=== PATIENT | male | born 1965 | race Caucasian/White ===

== ENCOUNTER 2016-06-19 14:03 | Inpatient (IN) | payer OTHER ==
[2016-06-19 14:45] LABS: Mean Cell Volume 100.6 fl (78-100); Mean Corpuscular Hemoglobin 33.8 pg (26-32); Mean Platelet Volume 9.6 fl (6-9.5); Platelet Count 134 K/mm3 (150-450); Red Blood Count 3.49 M/mm3 (4.1-5.6); Red Cell Distribution Width 14.3 % (11.5-14.0); White Blood Count 9.8 K/mm3 (4.0-10.5)
--- NOTE | 2016-06-19 14:45 | ERPHSYRPT ---
- History of Present Illness Time Seen by Provider: 06/19/16 14:24 Source: patient, family () Physician History: CC: leg swelling Hx: 51 y/o male patient almost 2 weeks s/p craniotomy for brain tumor resection. He had hyponatremia while in the hospital and went home on sodium tablets. He now has swelling of both legs. Called the doctor worried about blood clots in legs so was told to come to ER for check. No chest pain or dyspnea. Doing well post op. Not short of breath. Timing/Duration: today Allergies/Adverse Reactions: dermabond Allergy (Uncoded 06/19/16 14:39) Rash Home Medications: Aspirin 81 gm Chew [Baby Aspirin 81 mg Chew] 81 mg PO DAILY 05/18/14 [ History] Fentanyl 75Mcg Patch [Duragesic 75 MCG Patch] 75 mcg TOP UD 05/18/14 [ History] Multivitamin [Multi Vitamin Daily] 1 ea PO DAILY 05/18/14 [History] Pregabalin [Lyrica] 200 mg PO BID 05/18/14 [History] Ibuprofen 200 mg [Motrin 200 mg] 600 mg PO TID 08/16/14 [History] Carisoprodol 350 mg [Soma 350 mg] 350 mg PO DAILY 03/08/16 [History] Ergocalciferol (Vitamin D2) [Vitamin D2] 50,000 unit PO Q7D 03/08/16 [History] Ibandronate Sodium [Boniva] 150 mg PO UD 03/08/16 [History] Omeprazole [Prilosec] 40 mg PO BID 03/08/16 [History] Oxycodone HCl 10 mg PO BID 03/08/16 [History] Oxycodone HCl 15 mg PO BID 03/08/16 [History] Tadalafil [Cialis] 5 mg PO DAILY PRN PRN 03/08/16 [History] Calcium Carbonate/Vitamin D3 [Calcium 1,000 + D3 Caplet] 1 tab PO DAILY [History] Ipratropium/Albuterol Sulfate [Iprat-Albut 0.5-3(2.5) mg/3 ml] 2 puff IH QID [History] Umeclidinium Brm/Vilanterol Tr [Anoro Ellipta 62.5-25 Mcg INH] 1 puff IH DAILY 04/18/16 [History] Hx Tetanus, Diphtheria Vaccination/Date Given: Yes Hx Influenza Vaccination/Date Given: No Hx Pneumococcal Vaccination/Date Given: No - Review of Systems Constitutional: Malaise, No Fever, No Chills Eyes: No Symptoms Respiratory: No Dyspnea Cardiac: Edema (legs), No Chest Pain Abdominal/Gastrointestinal: No Nausea, No Vomiting Skin: No Rash Neurological: Parasthesia (preop), No Dizziness All Other Systems: Reviewed and Negative - Past Medical History Pertinent Past Medical History: Yes Neurological History: Peripheral Neuropathy ENT History: No Pertinent History Cardiac History: Other Respiratory History: COPD, Lung Cancer Endocrine Medical History: No Pertinent History Musculoskeletal History: Osteoporosis GI Medical History: No Pertinent History History: No Pertinent History Psycho-Social History: No Pertinent History Male Reproductive Disorders: No Pertinent History Other Medical History: Hx lung CA - Past Surgical History Past Surgical History: Yes Neuro Surgical History: Neurological Surgery Cardiac: No Pertinent History Respiratory: No Pertinent History, Other Gastrointestinal: No Pertinent History Genitourinary: No Pertinent History Musculoskeletal: Orthopedic Surgery Male Surgical History: Vasectomy Other Surgical History: R HIP X5 BILAT KNEE, TOE SURG, SINUS SURG, 7 BACK SURG, bronchoscopy. Craniotomy for brain tumor resection - Social History Smoking Status: Current every day smoker How long have you smoked: 35 yrs Exposure to second hand smoke: Yes Drug Use: none Patient Lives Alone: No - Nursing Vital Signs Nursing Vital Signs: Initial Vital Signs Temperature 98.4 F Temperature Source Oral Pulse Rate 113 Respiratory Rate 18 Blood Pressure [Right Arm] 138/81 Pain Intensity 2 - Physical Exam General Appearance: alert, other (pleasant gentleman) Eye Exam: PERRL/EOMI Ears, Nose, Throat Exam: moist mucous membranes Neck Exam: normal inspection, supple Respiratory Exam: normal breath sounds Cardiovascular Exam: regular rate/rhythm Gastrointestinal/Abdomen Exam: soft, No tenderness, No distention Extremity Exam: other (edema both legs, symmetrical, no calf tenderness. Some lacy red reticulated rash on feet. Pulses intact.) Neurologic Exam: alert, oriented x 3, cooperative Skin Exam: warm, dry - Course Nursing assessment & vital signs reviewed: Yes - Radiology Exams cxr X-ray Interpretation: Discussed w/ radiologist (new bilateral upper lobe infiltrates) - Radiology Ultrasound Exam leg dopplers Ultrasound: discussed w/radiologist, negative Ordered Tests: Active Orders 24 hr Category Date Time Status Clean Catch Urine Specimen STAT Care 06/19/16 14:28 Active EKG-ER Only STAT Care 06/19/16 16:24 Active IV Insertion STAT Care 06/19/16 14:28 Active CHEST 1 VIEW (PORTABLE) Stat Exams 06/19/16 16:24 Completed VENOUS BILATERAL EXTREMITY [US] Stat Exams 06/19/16 14:28 Completed BLOOD CULTURE Stat Lab 06/19/16 14:30 Received CBC W DIFF Stat Lab 06/19/16 14:30 Completed CMP Stat Lab 06/19/16 14:30 Completed Lactic Acid Urgent Lab 06/19/16 16:55 Received Manual Differential NC Stat Lab 06/19/16 14:30 Completed NT PRO BNP Stat Lab 06/19/16 16:55 Received UA Stat Lab 06/19/16 16:00 Completed Respiratory Nebulizer STAT RT 06/19/16 15:45 Completed Medication Summary Generic Name Dose Route Start Last Admin Trade Name Freq PRN Reason Stop Dose Admin Azithromycin 250 mls @ 125 mls/hr 06/19/16 16:59 Zithromax 500 Mg/ 250 Ml Nacl Premix IV 06/19/16 18:58 STAT ONE Piperacillin Sod/Tazobactam Sod 100 mls @ 100 mls/hr 06/19/16 16:59 Zosyn 3.375gm/100 Ml D5w IV 06/19/16 17:58 STAT ONE Sodium Chloride 500 mls @ 999 mls/hr 06/19/16 17:00 Sodium Chloride 0.9% 1000 Ml IV 06/19/16 17:30 .Q31M STA Discontinued Medications Generic Name Dose Route Start Last Admin Trade Name Freq PRN Reason Stop Dose Admin Albuterol Sulfate 2.5 mg 06/19/16 15:45 06/19/16 16:00 Proventil 2.5 Mg/3 Ml Neb IH 06/19/16 15:46 2.5 mg STAT ONE Administration Albuterol Sulfate Confirm 06/19/16 15:47 Proventil 2.5 Mg/3 Ml Neb Administered 06/19/16 15:48 Dose 2.5 mg IH .STK-MED ONE Lorazepam 0.5 mg 06/19/16 15:46 06/19/16 16:02 Ativan 2 Mg/1 Ml Vial IV 06/19/16 15:47 0.5 mg STAT ONE Administration Lorazepam Confirm 06/19/16 15:49 Ativan 2 Mg/1 Ml Vial Administered 06/19/16 15:50 Dose 2 mg .ROUTE .STK-MED ONE Oxycodone/Acetaminophen 1 tab 06/19/16 15:29 06/19/16 15:52 Oxycodone-Acetaminophen 10-325 PO 06/19/16 15:30 1 tab STAT STA Administration Oxycodone/Acetaminophen Confirm 06/19/16 15:50 Oxycodone-Acetaminophen 10-325 Administered 06/19/16 15:51 Dose 1 tab .ROUTE .STK-MED ONE Lab/Rad Data: Laboratory Result Diagrams 06/19/16 14:30 06/19/16 14:30 Laboratory Results 06/19/16 06/19/16 06/19/16 Range/Units 16:00 14:30 14:30 WBC 9.8 (4.0-10.5) K/mm3 RBC 3.49 L (4.1-5.6) M/mm3 Hgb 11.8 L (12.5-18.0) gm/dl Hct 35.1 L (42-50) % MCV 100.6 H (78-100) fl MCH 33.8 H (26-32) pg MCHC 33.6 (32-36) g/dl RDW 14.3 H (11.5-14.0) % Plt Count 134 L (150-450) K/mm3 MPV 9.6 H (6-9.5) fl Segmented Neutrophils 92 H (36.-66.) % Band Neutrophils 6 H (0.0-2.0) % Lymphocytes (Manual) 2 L (24-44) % Differential Comment ABNORMAL Platelet Estimate DECREASED (NORMAL) Polychromasia RARE Basophilic Stippling RARE Anisocytosis 1+ Macrocytosis 1+ Sodium 137 (136-145) mEq/L Potassium 3.6 (3.5-5.1) mEq/L Chloride 102 (98-107) mEq/L Carbon Dioxide 29.0 (21-32) mEq/L Anion Gap 9.7 (5-15) MEQ/L BUN 23 H (9-20) mg/dL Creatinine 0.87 (0.55-1.30) mg/dl Estimated GFR > 60 ML/MIN Glucose 137 H (70-110) MG/DL Calcium 8.6 (8.5-10.1) mg/dL Total Bilirubin 0.3 (0.2-1.0) mg/dL AST 30 (15-37) U/L ALT 65 (12-78) U/L Alkaline Phosphatase 86 (46-116) U/L Serum Total Protein 6.0 L (6.4-8.2) gm/dL Albumin 2.3 L (3.4-5.0) g/dL Ur Collection Type VOID Urine Color YELLOW (YELLOW) Urine Appearance CLEAR (CLEAR) Urine pH 7.5 (5-6) Ur Specific [place] 1.020 (1.005-1.025) Urine Protein NEGATIVE (Negative) Urine Glucose (UA) NEGATIVE (NEGATIVE) mg/dL Urine Ketones NEGATIVE (NEGATIVE) Urine Nitrite NEGATIVE (NEGATIVE) Urine Bilirubin NEGATIVE (NEGATIVE) Urine Urobilinogen 1 (0-1) mg/dL Urine WBC (Auto) NEGATIVE (NEGATIVE) Urine RBC (Auto) NEGATIVE (0-5) Angel/ul Specimen Received 06/19/16 1600 - Progress Progress Note: 06/19/16 14:45 Will check labs including Na. Will get doppler to rule out DVT in legs. 06/19/16 15:48 Dopplers negative. Labs ok. UA pending. He is very anxious. Will give neb, ativan, and his percocet. 06/19/16 17:03 Due to persistent and worsened tachycardia cxr and EKG done. He has apparent pneumonia on cxr. Cultures sent. They prefer admission here. He is on some oxygen. Called Dr Scott for Abdulkadir and will admit to ICU. Will cover with zosyn and zithromax to cover for possible healthcare associated pneumonia as recent surgery. Discussed with : Sonia Will see patient in: hospital (full admit) Counseled pt/family regarding: lab results, diagnosis, need for follow-up, rad results - Departure Time of Disposition: 17:05 Departure Disposition: In-patient Admission Clinical Impression: Bilateral leg edema, post op brain tumor resection, Healthcare-associated pneumonia Condition: Fair Critical Care Time: Yes Critical Care Time(excluding separately billable procedures): 30-74 minutes
[2016-06-19 15:22] LABS: ALBUMIN 2.3 g/dL (3.4-5.0); ALKALINE PHOSPHATASE 86 U/L (46-116); ANION GAP 9.7 MEQ/L (5-15); BILIRUBIN,TOTAL 0.3 mg/dL (0.2-1.0); BLOOD UREA NITROGEN 23 mg/dL (9-20); CHLORIDE 102 mEq/L (98-107); Glucose 137 MG/DL (70-110); Potassium 3.6 mEq/L (3.5-5.1); SGOT/AST 30 U/L (15-37); SGPT/ALT 65 U/L (12-78); SODIUM 137 mEq/L (136-145)
[2016-06-19] MEDS ORDERED: OXYCODONE-ACETAMINOPHEN 10-325 PO STA (15:29)
--- NOTE | 2016-06-19 15:33 | XRAY ---
Indication: Bilateral leg edema. Two-dimensional sonogram and color Doppler imaging of the major venous vessels of the left and right leg was performed. Comparison: None No thrombus seen in the examined deep venous vessels of the left or right leg including greater saphenous veins. Veins demonstrate normal compressibility. Venous waveforms are normal with and without augmentation. Impression: Left and right legs negative for DVT.
[2016-06-19 15:44] LABS: BAND 6 % (0.0-2.0); Total Cells Counted 100
[2016-06-19] MEDS ORDERED: PROVENTIL 2.5 MG/3 ML NEB IH ONE ×2 (15:45→15:47)
[2016-06-19] MEDS ORDERED: Ativan 2 MG/1 ML VIAL IV ONE (15:46)
[2016-06-19 15:47] LABS: ANISOCYTOSIS 1+; Basophilic Stippling RARE; Polychromasia RARE
[2016-06-19 15:48] LABS: Macrocytosis 1+; Platelet Estimate DECREASED (NORMAL)
[2016-06-19] MEDS ORDERED: Ativan 2 MG/1 ML VIAL ONE (15:49)
[2016-06-19] MEDS ORDERED: OXYCODONE-ACETAMINOPHEN 10-325 ONE (15:50)
[2016-06-19 16:06] LABS: COMPLETE URINE MICROSCOPIC? NO; Collection Type VOID
[2016-06-19 16:07] LABS: Ph 7.5 (5-6)
--- NOTE | 2016-06-19 16:56 | XRAY ---
Indication: Chest tightness and short breath. Panic attack. Comparison: March 26, 2016 Portable chest demonstrates new right upper and left upper lobe infiltrates versus atelectasis. No consolidation or large effusion. Heart is not enlarged. Stable right Port-A-Cath. Bony thorax intact again with previous T5/T6 kyphoplasty. Impression: New bilateral upper lobe infiltrates/atelectasis. Correlate clinically.
[2016-06-19] MEDS ORDERED: Zosyn 3.375GM/100 Ml D5W 100 ML IV ONE ×2 (16:59→17:29)
[2016-06-19] MEDS ORDERED: Zithromax 500 MG/ 250 ML NaCl Premix 250 ML IV ONE ×2 (16:59→17:29)
[2016-06-19] MEDS ORDERED: Sodium Chloride 0.9% 1000 ML 1,000 ML ONE (17:09)
[2016-06-19] MEDS: Zosyn 3.375GM/100 Ml D5W 100 ML IV SCH (18:30)
[2016-06-19] MEDS ORDERED: DUONEB 0.5-3 MG/3 ml Neb IH ONE (18:39)
[2016-06-19] MEDS: DUONEB 0.5-3 MG/3 ml Neb IH SCH ×2 (18:41→23:47)
--- NOTE | 2016-06-19 19:14 | PCM.HP ---
History of Present Illness - Chief Complaint Chief Complaint: Shortness of Breath History of Present Illness: is a 51 year old male pt of Dr. Panchal (and Dr. Brennan) who had a craniotomy 11 d ago and lung cancer a year ago. He had LE edema bilat starting last night and was told by his surgeon to go to the ER at [facility]. He then had a fever to 101 and CXR revealed bilateral upper lobe infiltrates. Influenza positive. C/o cough for the past 10d. - Review of Systems Constitutional: Fever, Fatigue Ears, Nose, & Throat: Other (incision s/p craniotomy) Respiratory: Cough, Short Of Breath (since arriving at [facility]) Genitourinary Symptoms: Hesitancy (chronic) Musculoskeletal: Arthralgias (knees bilat; chronic) Skin: Rash (LE blanching erythmatous rash from distal 1/3 of lower legs to dorsum of feet bilat) Psychological: Anxiety All Other Systems: Reviewed and Negative Medications & Allergies Home Medications: Home Medication List Fentanyl 75Mcg Patch [Duragesic 75 MCG Patch] 75 mcg TOP UD 05/18/14 [ History Confirmed 06/19/16] Multivitamin [Multi Vitamin Daily] 1 ea PO DAILY 05/18/14 [History Confirmed ] Pregabalin [Lyrica] 200 mg PO BID 05/18/14 [History Confirmed 06/19/16] Carisoprodol 350 mg [Soma 350 mg] 350 mg PO DAILY 03/08/16 [History Confirmed 06/19/16] Ergocalciferol (Vitamin D2) [Vitamin D2] 50,000 unit PO Q7D 03/08/16 [History Confirmed 06/19/16] Ibandronate Sodium [Boniva] 150 mg PO UD 03/08/16 [History Confirmed 06/19/16] Omeprazole [Prilosec] 40 mg PO BID 03/08/16 [History Confirmed 06/19/16] Oxycodone HCl 10 mg PO BID 03/08/16 [History Confirmed 06/19/16] Oxycodone HCl 15 mg PO BID 03/08/16 [History Confirmed 06/19/16] Tadalafil [Cialis] 5 mg PO DAILY PRN PRN 03/08/16 [History Confirmed 06/19/16] Calcium Carbonate/Vitamin D3 [Calcium 1,000 + D3 Caplet] 1 tab PO DAILY [History Confirmed 06/19/16] Ipratropium/Albuterol Sulfate [Iprat-Albut 0.5-3(2.5) mg/3 ml] 2 puff IH QID [History Confirmed 06/19/16] Umeclidinium Brm/Vilanterol Tr [Anoro Ellipta 62.5-25 Mcg INH] 1 puff IH DAILY 04/18/16 [History Confirmed 06/19/16] Allergies/Adverse Reactions: Allergies Allergy/AdvReac Type Severity Reaction Status Date / Time dermabond Allergy Rash Uncoded 06/19/16 14:39 - Past Medical History Past Medical History: Yes Neurological History: Peripheral Neuropathy ENT History: No Pertinent History Cardiac History: Other Respiratory History: COPD, Lung Cancer Endocrine Medical History: No Pertinent History Musculoskelatal History: Osteoporosis GI Medical History: No Pertinent History History: No Pertinent History Pyscho-Social History: No Pertinent History Male Reproductive Disorders: No Pertinent History Comment: Hx lung CA - Past Surgical History Past Surgical History: Yes Neuro Surgical History: Neurological Surgery Cardiac History: No Pertinent History Respiratory Surgery: No Pertinent History, Other GI Surgical History: No Pertinent History Genitourinary Surgical Hx: No Pertinent History Musculskeletal Surgical Hx: Orthopedic Surgery Male Surgical History: Vasectomy Other Surgical History: R HIP X5 BILAT KNEE, TOE SURG, SINUS SURG, 7 BACK SURG, bronchoscopy. Craniotomy for brain tumor resection - Social History Smoking Status: Former smoker How long have you smoked: 2 wks ago Exposure to second hand smoke: No Alcohol: None Drug Use: none - Physical Exam Vital Signs: Vital Signs - 24 hr Temp Pulse Resp BP Pulse Ox 06/19/16 17:56 99.0 F 106 H 18 117/77 95 06/19/16 17:51 105 H 16 94 L 06/19/16 17:19 100.9 F 116 H 16 157/129 91 L 06/19/16 16:22 113 H 18 138/81 90 L 06/19/16 16:07 100 H 20 197/113 92 L 06/19/16 16:00 128 H 32 H 90 L 06/19/16 14:21 98.4 F 94 H 20 137/89 93 L Oxygen-Last 24 hours O2 Percentage 2 Liters = 28% General Appearance: no apparent distress Neurologic Exam: alert, oriented x 3, cooperative Eye Exam: eyes nml inspection Neck Exam: normal inspection Respiratory Exam: diminished breath sounds, wheezing (SOMMER), other (port present R upper chest) Cardiovascular Exam: regular rate/rhythm, normal heart sounds, No murmur Gastrointestinal/Abdomen Exam: soft, normal bowel sounds, No tenderness, No guarding, No rebound Back Exam: normal inspection Extremity Exam: other (lower 1/3 of anterior lower legs and dorsum of feet with macular blanching erythema) Skin Exam: warm, dry Results - Other Procedures and Tests Respiratory Therapy 06/19/16 19:00 Respiratory Nebulizer Q4H Assessment/Plan (1) Influenza Current Visit: Yes Status: Acute Assessment & Plan: Influenza A +. started tamiflu. Concern in this pt with influenza and PNA - I spoke with DR. Carrillo, thank you, and he agrees with the plan of care. He will see the patient in the morning. Code(s): J11.1 - FLU DUE TO UNIDENTIFIED INFLUENZA VIRUS W OTH RESP MANIFEST (2) Healthcare-associated pneumonia Current Visit: Yes Status: Acute Assessment & Plan: Pt put on zosyn and zithromax initially, and vancomycin added due to concern for MRSA PNA in patients with influenza. Code(s): J18.9 - PNEUMONIA, UNSPECIFIED ORGANISM (3) H/O craniotomy Current Visit: Yes Status: Acute Assessment & Plan: 11d post- op. To get marck removed tomorrow. Code(s): Z98.890 - OTHER SPECIFIED POSTPROCEDURAL STATES (4) H/O: lung cancer Current Visit: Yes Status: Acute Assessment & Plan: SOMMER, treated with radiation and chemotherapy, Apr 2015. Code(s): Z85.118 - PERSONAL HISTORY OF MALIGNANT NEOPLASM OF BRONCHUS AND LUNG
[2016-06-19] MEDS ORDERED: Oxy-IR 5 MG PO PRN (20:00)
[2016-06-19] MEDS ORDERED: VANCOCIN 1 GM VIAL*** 1 GM in Sodium Chloride 0.9% 250 ML 250 ML IV SCH ×2 (20:00→22:00)
[2016-06-19] MEDS ORDERED: Vancomycin 1GM/ Ns 250ML*** 250 ML IV ONE (20:15)
[2016-06-19] MEDS: Oxy-IR 5 MG PO SCH (20:20)
[2016-06-19] MEDS: Tamiflu 75MG Capsule PO SCH (20:20)
[2016-06-19] MEDS: LYRICA 100MG PO SCH (20:22)
[2016-06-19] MEDS: Protonix 40MG Tablet PO SCH (20:43)
[2016-06-19] MEDS ORDERED: Oxy-IR 5 MG PO SCH (22:00)
[2016-06-20] MEDS: DUONEB 0.5-3 MG/3 ml Neb IH SCH ×6 (03:01→22:35)
[2016-06-20] MEDS: Sodium Chloride 0.9% 1000 ML 1,000 ML IV SCH (03:33)
[2016-06-20] MEDS: Zosyn 3.375GM/100 Ml D5W 100 ML IV SCH ×4 (03:34→18:15)
[2016-06-20] MEDS ORDERED: Oxy-IR 5 MG PO ONE (04:30)
[2016-06-20 05:59] LABS: Mean Cell Volume 100.3 fl (78-100); Mean Corpuscular Hemoglobin 33.5 pg (26-32); Mean Platelet Volume 10.1 fl (6-9.5); Platelet Count 136 K/mm3 (150-450); Red Blood Count 3.49 M/mm3 (4.1-5.6); Red Cell Distribution Width 14.8 % (11.5-14.0); White Blood Count 8.1 K/mm3 (4.0-10.5)
[2016-06-20 06:12] LABS: ANION GAP 9.2 MEQ/L (5-15); BLOOD UREA NITROGEN 13 mg/dL (9-20); CHLORIDE 102 mEq/L (98-107); Carbon Dioxide 28.8 mEq/L (21-32); Glucose 114 MG/DL (70-110); Potassium 3.5 mEq/L (3.5-5.1); SODIUM 137 mEq/L (136-145)
[2016-06-20 06:52] LABS: Eosinophil 1 % (0.00-3.0); Nucleated Red Blood Cell 1 %; Total Cells Counted 100
[2016-06-20 07:19] LABS: ANISOCYTOSIS 1+; Platelet Estimate NORMAL (NORMAL); Poikilocytosis 1+
[2016-06-20] MEDS: PATIENT OWN MEDICATION IH SCH (07:29)
[2016-06-20] MEDS: VANCOCIN 1 GM VIAL*** 1 GM in Sodium Chloride 0.9% 250 ML 250 ML IV SCH ×3 (07:43→23:20)
[2016-06-20] MEDS: Spiriva 18 Mcg/Cap Inhaler IH SCH (07:48)
--- NOTE | 2016-06-20 08:48 | PCM.NOTE ---
Date and Time: 06/20/16844 Subjective Assessment: patient c/o severe headache today, he arrived yesterday with complaints of swelling in the lower extremities. had no complaints of cough or fever but found to have influenza A and pneumonia Objective Exam General Appearance: no apparent distress Eye Exam: other (well approximated scalp incision with marck intact) Respiratory Exam: normal breath sounds, lungs clear, No respiratory distress Cardiovascular Exam: regular rate/rhythm, normal heart sounds Gastrointestinal/Abdomen Exam: soft, No tenderness, No mass Extremity Exam: normal inspection, normal range of motion OBJECTIVE DATA Vital Signs: Vital Signs - 24 hr Temp Pulse Resp BP Pulse Ox 06/20/16 07:50 98.9 F 80 16 141/88 89 L 06/20/16 07:00 98 H 20 94 L 06/20/16 06:00 99.2 F 70 21 116/58 95 06/20/16 04:00 86 27 H 139/84 95 06/20/16 03:02 86 18 93 L 06/20/16 02:00 80 19 139/84 94 L 06/20/16 00:01 89 06/20/16 00:00 89 25 H 114/76 93 L 06/19/16 23:47 94 H 18 95 06/19/16 22:00 98.7 F 95 H 20 111/74 93 L 06/19/16 20:00 99.0 F 90 20 117/78 93 L 06/19/16 18:41 92 H 20 94 L 06/19/16 17:56 99.0 F 106 H 18 117/77 95 06/19/16 17:51 105 H 16 94 L 06/19/16 17:19 100.9 F 116 H 16 157/129 91 L 06/19/16 16:22 113 H 18 138/81 90 L 06/19/16 16:07 100 H 20 197/113 92 L 06/19/16 16:00 128 H 32 H 90 L 06/19/16 14:21 98.4 F 94 H 20 137/89 93 L Oxygen-Last 24 hours O2 Percentage 2 Liters = 28% O2 Percentage 2 Liters = 28% O2 Percentage 2 Liters = 28% O2 Percentage 2 Liters = 28% O2 Percentage 2 Liters = 28% O2 Percentage 2 Liters = 28% O2 Percentage 2 Liters = 28% O2 Percentage 2 Liters = 28% Pain Assessment - Last Documented Pain Intensity 8 Pain Scale Used 0-10 Pain Scale Intake and Output: Intake & Output 06/17/16 06/18/16 06/19/16 06/20/16 11:59 11:59 11:59 11:59 Intake Total 1639 Output Total 2100 Balance -461 Weight 86.863 kg Lab Results: Lab Results-Last 24 Hours 06/20/16 06/20/16 Range/Units 05:18 05:18 WBC 8.1 (4.0-10.5) K/mm3 RBC 3.49 L (4.1-5.6) M/mm3 Hgb 11.7 L (12.5-18.0) gm/dl Hct 35.0 L (42-50) % MCV 100.3 H (78-100) fl MCH 33.5 H (26-32) pg MCHC 33.4 (32-36) g/dl RDW 14.8 H (11.5-14.0) % Plt Count 136 L (150-450) K/mm3 MPV 10.1 H (6-9.5) fl Segmented Neutrophils 95 H (36.-66.) % Lymphocytes (Manual) 3 L (24-44) % Monocytes (Manual) 1 (0.0-12.0) % Eosinophils (Manual) 1 (0.00-3.0) % Nucleated RBCs 1 % Platelet Estimate NORMAL (NORMAL) Poikilocytosis 1+ Anisocytosis 1+ Sodium 137 (136-145) mEq/L Potassium 3.5 (3.5-5.1) mEq/L Chloride 102 (98-107) mEq/L Carbon Dioxide 28.8 (21-32) mEq/L Anion Gap 9.2 (5-15) MEQ/L BUN 13 (9-20) mg/dL Creatinine 0.66 (0.55-1.30) mg/dl Estimated GFR > 60 ML/MIN Glucose 114 H (70-110) MG/DL Calcium 8.4 L (8.5-10.1) mg/dL Assessment/Plan (1) Influenza Current Visit: Yes Status: Acute Assessment & Plan: on tamiflu Code(s): J11.1 - FLU DUE TO UNIDENTIFIED INFLUENZA VIRUS W OTH RESP MANIFEST (2) Healthcare-associated pneumonia Current Visit: Yes Status: Acute Assessment & Plan: vanc and zosyn ordered, pulmonary consult pending. Code(s): J18.9 - PNEUMONIA, UNSPECIFIED ORGANISM (3) Bilateral leg edema Current Visit: Yes Status: Acute Code(s): R60.0 - LOCALIZED EDEMA (4) H/O craniotomy Current Visit: Yes Status: Acute Code(s): Z98.890 - OTHER SPECIFIED POSTPROCEDURAL STATES (5) H/O: lung cancer Current Visit: Yes Status: Acute Code(s): Z85.118 - PERSONAL HISTORY OF MALIGNANT NEOPLASM OF BRONCHUS AND LUNG
[2016-06-20] MEDS ORDERED: Zofran 4 MG/2 ML VIAL IV PRN (08:49)
[2016-06-20] MEDS: SOMA 350 MG PO SCH (08:57)
[2016-06-20] MEDS: Protonix 40MG Tablet PO SCH ×2 (08:57→21:09)
[2016-06-20] MEDS: Zithromax 500 MG/ 250 ML NaCl Premix 250 ML IV SCH (08:57)
[2016-06-20] MEDS: Tamiflu 75MG Capsule PO SCH ×2 (08:57→21:09)
[2016-06-20] MEDS: MORPHINE SULFATE 4 MG INJ IV PRN ×6 (08:58→23:20)
[2016-06-20] MEDS: LYRICA 100MG PO SCH ×2 (08:59→21:09)
[2016-06-20] MEDS ORDERED: Oxy-IR 5 MG PO SCH (10:00)
[2016-06-20] MEDS: Oxy-IR 5 MG PO SCH ×4 (10:35→22:33)
--- NOTE | 2016-06-20 10:42 | XRAY ---
Indication: Severe headache. Recent craniotomy for large right parietal lobe enhancing mass. Multiple contiguous images obtained through the head without contrast. Comparison: None. Note is made of MRI brain May 18, 2016. Since the previous MRI, there has been right frontal parietal craniotomy for known right parietal enhancing mass. Underlying parenchymal and subdural fluid as well as pneumocephalus presumed postsurgical. There is also right anterior parietal/frontal vasogenic edema and 8mm midline shifting presumed related to known mass. No acute intracranial hemorrhage or hydrocephalus. Fourth ventricle is midline. Remaining bony calvarium intact. There is tiny fluid level layering in both maxillary and left frontal sinuses. Mild mucosal thickening of both ethmoid and right frontal sinuses. Impression: Status post right frontoparietal craniotomy with postsurgical changes as detailed. No acute intracranial hemorrhage. Right frontal parietal vasogenic edema and stable midline shifting presumed related to known mass. CTDI 84.14
[2016-06-20] MEDS: Decadron 4 MG PO SCH ×2 (14:22→21:09)
--- NOTE | 2016-06-20 14:31 | CONS ---
CONSULT DATE: 06/20/2016 REASON FOR CONSULTATION: Pneumonia, influenza, shortness of breath. 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 Graham Alonso is a 51 year-old male with history of lung carcinoma diagnosed approximately 15 months ago, in left lower lobe, status post chemo and radiation in [place] who was in usual state of health up until two days ago. The patient started developing leg swelling along with increasing cough and was brought to the hospital mainly with concerns of possible deep venous thrombosis. He had venous Doppler's performed which were negative. However, the patient's chest x-ray did show upper lobe infiltrates suggestive of pneumonia. He has been started on broad spectrum IV antibiotics. He has been admitted to ICU. The patient was recently noted to have left sided weakness and underwent MRI that showed metastatic lesions to brain. On 06/08/2016, he had craniotomy with resection of the same. A repeat CT was performed yesterday which showed some post-surgical changes with mild midline shift. At the time of my evaluation today the patient is awake, alert, able to speak. He does complain of significant headache which is more of throbbing in nature. He does have some cough but denies acute pulmonary symptoms. PAST MEDICAL HISTORY: Positive for chronic obstructive pulmonary disease, hypertension, osteoporosis, gastroesophageal reflux and chronic pain from previous back surgeries. PAST SURGICAL HISTORY: The patient has had multiple back surgeries and had pericardial window last year by Dr. García. PERSONAL AND SOCIAL HISTORY: The patient had been a smoker up until 06/07/2016. MEDICATIONS: Home and current medications are reviewed. ALLERGIES: DERMABOND THAT CAUSES RASH. PHYSICAL EXAMINATION: This is a middle aged male who appears otherwise comfortable. Vital signs are noted. HEENT: Head has craniotomy scar with marck in place. Pupils are reactive. Oral exam shows moist mucosa. NECK: Supple. CVS: First and second heart sounds are normal, regular, rhythmic. RESPIRATORY: Shows diminished breath sounds, fairly clear to auscultation. ABDOMEN: Soft. EXTREMITIES: Lower extremities show 1+ leg edema. LABORATORY DATA AND TESTS: Blood cultures have grown gram negative rods, ID pending. White blood cell count 8.1, hemoglobin 11.7, hematocrit 35, PLT 136,000. Sodium 135, potassium 3.5, chloride 102, bicarb 29, glucose 114, BUN 13, creatinine 0.6. Influenza A was positive. Lactic acid was 1.1. X-rays and other radiology tests were reviewed. 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 2) Hypoxemia. 3) Metastatic lung cancer. 4) Nicotine addiction. 5) Morbidities listed above. RECOMMENDATIONS: The patient clinically seems to be improving currently on Zosyn and Zithromax and I have advised that the same be continued. He is on Tamiflu. Will add Decadron as the patient continues to have persistent headaches which are likely to be post-surgical changes. Gradual steroid taper. Doppler's were negative. The patient will benefit from SCD's for deep venous thrombosis prophylaxis. Obtain follow up chest x-ray in the a.m., follow up cultures. He has remained afebrile and appears that Zosyn and Zithromax may be covering for now. Further recommendations pending clinical improvement. Thank you for allowing me to participate in the care of Graham Alonso.
[2016-06-21] MEDS: Zosyn 3.375GM/100 Ml D5W 100 ML IV SCH ×5 (00:45→23:45)
[2016-06-21] MEDS: MORPHINE SULFATE 4 MG INJ IV PRN ×6 (03:44→23:45)
[2016-06-21] MEDS: DUONEB 0.5-3 MG/3 ml Neb IH SCH ×6 (04:22→23:52)
[2016-06-21] MEDS: Decadron 4 MG PO SCH (05:37)
[2016-06-21] MEDS: PATIENT OWN MEDICATION IH SCH ×2 (06:49→16:37)
[2016-06-21] MEDS: Spiriva 18 Mcg/Cap Inhaler IH SCH ×2 (06:49→16:37)
[2016-06-21] MEDS ORDERED: TROUGH DRUG LEVELS IJ ONE (07:30)
[2016-06-21 07:32] LABS: Mean Cell Volume 97.8 fl (78-100); Mean Corpuscular Hemoglobin 33.2 pg (26-32); Mean Platelet Volume 9.8 fl (6-9.5); Platelet Count 118 K/mm3 (150-450); Red Blood Count 3.58 M/mm3 (4.1-5.6); Red Cell Distribution Width 14.1 % (11.5-14.0); White Blood Count 9.2 K/mm3 (4.0-10.5)
[2016-06-21 08:05] LABS: ALBUMIN 2.1 g/dL (3.4-5.0); ALKALINE PHOSPHATASE 77 U/L (46-116); ANION GAP 15.9 MEQ/L (5-15); BILIRUBIN,TOTAL 0.6 mg/dL (0.2-1.0); BLOOD UREA NITROGEN 11 mg/dL (9-20); CHLORIDE 99 mEq/L (98-107); Carbon Dioxide 24.9 mEq/L (21-32); Glucose 166 MG/DL (70-110); Potassium 3.8 mEq/L (3.5-5.1); SGOT/AST 30 U/L (15-37); SGPT/ALT 58 U/L (12-78); SODIUM 136 mEq/L (136-145); Total Protein 5.5 gm/dL (6.4-8.2)
--- NOTE | 2016-06-21 08:16 | PCM.NOTE ---
Date and Time: 06/21/16813 Subjective Assessment: patient appears much more comfortable today, tolerating po intake. headache is still present but he is alert and conversant and smiling today. Objective Exam General Appearance: no apparent distress Skin Exam: normal color, warm, dry Respiratory Exam: crackles/rales (left base) Cardiovascular Exam: regular rate/rhythm, normal heart sounds OBJECTIVE DATA Vital Signs: Vital Signs - 24 hr Temp Pulse Resp BP Pulse Ox 06/21/16 06:53 82 18 92 L 06/21/16 05:44 133/81 06/21/16 04:22 86 17 95 06/21/16 04:00 99.5 F 76 17 133/81 99 06/21/16 02:00 98 H 21 06/20/16 23:42 108 H 21 06/20/16 23:41 99.2 F 108 H 21 148/72 97 06/20/16 22:50 80 21 96 06/20/16 21:47 74 139/46 06/20/16 20:00 98.6 F 74 23 148/91 95 06/20/16 18:00 98.3 F 90 20 155/88 97 06/20/16 16:00 97.4 F 93 H 18 165/88 96 06/20/16 14:39 71 16 96 06/20/16 14:00 98.2 F 95 H 20 158/89 97 06/20/16 12:00 97.0 F 98 H 18 169/88 96 06/20/16 10:15 92 H 16 97 06/20/16 10:00 99.4 F 102 H 18 154/79 98 Oxygen-Last 24 hours O2 Percentage 4 Liters = 36% O2 Percentage 2 Liters = 28% O2 Percentage 4 Liters = 36% O2 Percentage 2 Liters = 28% O2 Percentage 2 Liters = 28% O2 Percentage 2 Liters = 28% O2 Percentage 4 Liters = 36% Pain Assessment - Last Documented Pain Intensity 10 Pain Scale Used 0-10 Pain Scale Intake and Output: Intake & Output 06/18/16 06/19/16 06/20/16 06/21/16 11:59 11:59 11:59 11:59 Intake Total 1639 5152 Output Total 2100 4100 Balance -461 1052 Weight 86.863 kg Lab Results: Lab Results-Last 24 Hours 02/06/21/16 06/21/16 Range/Units 07:30 07:30 07:30 WBC 9.2 (4.0-10.5) K/mm3 RBC 3.58 L (4.1-5.6) M/mm3 Hgb 11.9 L (12.5-18.0) gm/dl Hct 35.0 L (42-50) % MCV 97.8 (78-100) fl MCH 33.2 H (26-32) pg MCHC 34.0 (32-36) g/dl RDW 14.1 H (11.5-14.0) % Plt Count 118 L (150-450) K/mm3 MPV 9.8 H (6-9.5) fl Sodium 136 (136-145) mEq/L Potassium 3.8 (3.5-5.1) mEq/L Chloride 99 (98-107) mEq/L Carbon Dioxide 24.9 (21-32) mEq/L Anion Gap 15.9 H (5-15) MEQ/L BUN 11 (9-20) mg/dL Creatinine 0.61 (0.55-1.30) mg/dl Estimated GFR > 60 ML/MIN Glucose 166 H (70-110) MG/DL Calcium 8.4 L (8.5-10.1) mg/dL Total Bilirubin 0.6 (0.2-1.0) mg/dL AST 30 (15-37) U/L ALT 58 (12-78) U/L Alkaline Phosphatase 77 (46-116) U/L Serum Total Protein 5.5 L (6.4-8.2) gm/dL Albumin 2.1 L (3.4-5.0) g/dL Vancomycin Trough 5.4 L (10-20) UG/ML Radiology Exams: Radiology Procedures Category Date Time Status CHEST 2 VIEWS (PA AND LAT) Routine Exams 06/21/16 08:00 Ordered HEAD WITHOUT CONTRAST [CT] Urgent Exams 06/20/16 08:52 Completed Assessment/Plan (1) Influenza Current Visit: Yes Status: Acute Assessment & Plan: continue tamiflu and fluids, supportive care Code(s): J11.1 - FLU DUE TO UNIDENTIFIED INFLUENZA VIRUS W OTH RESP MANIFEST (2) Healthcare-associated pneumonia Current Visit: Yes Status: Acute Assessment & Plan: seems to be improving on vanc/zosyn Code(s): J18.9 - PNEUMONIA, UNSPECIFIED ORGANISM (3) Bilateral leg edema Current Visit: Yes Status: Acute Code(s): R60.0 - LOCALIZED EDEMA (4) H/O craniotomy Current Visit: Yes Status: Acute Assessment & Plan: doing well, marck removed today, incision is clean, dry, intact and well approximated Code(s): Z98.890 - OTHER SPECIFIED POSTPROCEDURAL STATES (5) H/O: lung cancer Current Visit: Yes Status: Acute Code(s): Z85.118 - PERSONAL HISTORY OF MALIGNANT NEOPLASM OF BRONCHUS AND LUNG
[2016-06-21] MEDS: VANCOCIN 1 GM VIAL*** 1 GM in Sodium Chloride 0.9% 250 ML 250 ML IV SCH ×2 (08:26→16:45)
[2016-06-21] MEDS: Protonix 40MG Tablet PO SCH ×2 (08:26→22:00)
[2016-06-21] MEDS: Sodium Chloride 0.9% 1000 ML 1,000 ML IV SCH ×2 (08:26→16:38)
[2016-06-21] MEDS: xanAX 0.5 MG PO PRN ×2 (08:26→22:09)
[2016-06-21] MEDS: Tamiflu 75MG Capsule PO SCH ×2 (08:27→22:00)
[2016-06-21] MEDS: SOMA 350 MG PO SCH (08:27)
[2016-06-21] MEDS: Flomax 0.4 MG PO SCH (08:30)
[2016-06-21] MEDS: Oxy-IR 5 MG PO SCH ×4 (08:30→22:00)
[2016-06-21] MEDS: LYRICA 100MG PO SCH ×2 (08:31→22:00)
[2016-06-21] MEDS: Duragesic 75 MCG Patch TOP SCH (10:22)
[2016-06-21] MEDS: Zithromax 500 MG/ 250 ML NaCl Premix 250 ML IV SCH (10:23)
--- NOTE | 2016-06-21 15:14 | XRAY ---
Exam: Two-view chest from 06/21/2016. Comparison: AP portable chest film from 06/19/[address] of the chest with IV contrast from 05/23/2016. Indication: Pneumonia, history of lung cancer with brain metastasis. Findings: Upright PA and lateral chest films are submitted for evaluation. Previously noted right upper lung field and left midlung field airspace infiltrates, although still present,, demonstrate improvement (i.e. decrease) since the exam of 06/19/2016. There is a suggestion of a 1.6 cm ill-defined nodular opacity within the projection of the right lateral costophrenic angle. It is possible this represents artifact as it overlies the anterior and posterior margin of 2 different ribs as well as some vascular markings. No nodule is seen in this projection on the lateral radiograph. Significance of this is equivocal. There is minimal focal pleural scarring at the medial aspect of the left hemidiaphragm. No pneumothorax, vascular congestion, or pleural effusion is seen. A right-sided jugular portacatheter is seen with the tip in the proximal SVC. There is evidence of prior vertebroplasty at T5 and T6. I also see minimal anterior wedging of T9 as well as T11 and T12. In retrospect, this is unchanged from the sagittal CT images of 05/23/2016. Impression: 1. Partial resolution of prior right upper lobe and left midlung field infiltrates as compared to 06/19/2016 representing some improvement. Follow-up should be obtained to ensure resolution. 2. Small questionable nodular density within right lateral costophrenic angle which I believe is most likely artifactual. 3. Skeletal findings as discussed above.
--- NOTE | 2016-06-21 15:39 | XRAY ---
Exam: Modified barium swallow from 06/21/2016. Fluoroscopy time: 1 minute 1 second. Comparison: None. Indication: History of pneumonia, clinical concern for aspiration. Findings: The examination was performed with the patient in the upright lateral sitting position using the C-arm with the speech pathologist in attendance. The study was recorded. The patient was given liquids of different consistencies as well as soft solids. At times, there was some premature roll over into the pyriform sinuses before the swallow triggered, but no laryngeal penetration or aspiration was seen by this study. Please see speech pathologist's report for further details.
[2016-06-21] MEDS ORDERED: Decadron 4 MG PO SCH (17:00)
[2016-06-22] MEDS: DUONEB 0.5-3 MG/3 ml Neb IH SCH ×5 (03:15→19:58)
[2016-06-22] MEDS: VANCOCIN 1 GM VIAL*** 1 GM in Sodium Chloride 0.9% 250 ML 250 ML IV SCH ×5 (05:01→23:22)
[2016-06-22] MEDS ORDERED: Vancomycin 1GM/ Ns 250ML*** 250 ML IV ONE (05:16)
[2016-06-22 05:52] LABS: Mean Cell Volume 96.9 fl (78-100); Mean Corpuscular Hemoglobin 33.7 pg (26-32); Mean Platelet Volume 10.1 fl (6-9.5); Platelet Count 144 K/mm3 (150-450); Red Blood Count 3.53 M/mm3 (4.1-5.6); Red Cell Distribution Width 14.3 % (11.5-14.0); White Blood Count 10.3 K/mm3 (4.0-10.5)
[2016-06-22] MEDS: Sodium Chloride 0.9% 1000 ML 1,000 ML IV SCH (06:01)
[2016-06-22] MEDS: MORPHINE SULFATE 4 MG INJ IV PRN ×5 (06:01→22:27)
[2016-06-22 06:15] LABS: ANION GAP 14.5 MEQ/L (5-15); BLOOD UREA NITROGEN 17 mg/dL (9-20); CHLORIDE 101 mEq/L (98-107); Carbon Dioxide 24.5 mEq/L (21-32); Glucose 140 MG/DL (70-110); SODIUM 136 mEq/L (136-145)
[2016-06-22 06:51] LABS: BAND 1 % (0.0-2.0); Platelet Estimate NORMAL (NORMAL); Total Cells Counted 100
[2016-06-22] MEDS: PATIENT OWN MEDICATION IH SCH (07:23)
[2016-06-22] MEDS: Spiriva 18 Mcg/Cap Inhaler IH SCH (07:23)
[2016-06-22] MEDS: Zosyn 3.375GM/100 Ml D5W 100 ML IV SCH ×3 (07:35→20:42)
[2016-06-22] MEDS: Oxy-IR 5 MG PO SCH ×4 (07:50→20:42)
[2016-06-22] MEDS ORDERED: DUONEB 0.5-3 MG/3 ml Neb IH PRN (08:37)
--- NOTE | 2016-06-22 08:40 | PCM.NOTE ---
Date and Time: 06/22/16834 Subjective Assessment: patient feeling better, still has some headache but overall improving a great deal. he is in good spirits and smiling/laughing today Objective Exam General Appearance: no apparent distress, alert Skin Exam: normal color, warm, dry Respiratory Exam: crackles/rales Cardiovascular Exam: regular rate/rhythm, normal heart sounds Gastrointestinal/Abdomen Exam: soft, No tenderness, No mass Extremity Exam: normal inspection, normal range of motion OBJECTIVE DATA Vital Signs: Vital Signs - 24 hr Temp Pulse Resp BP Pulse Ox 06/22/16 07:39 98 F 86 20 142/88 93 L 06/22/16 04:00 98.2 F 88 22 143/85 94 L 06/22/16 03:16 96 H 18 92 L 06/22/16 00:00 18 06/21/16 23:58 98.8 F 87 18 134/88 94 L 06/21/16 23:53 88 18 92 L 06/21/16 23:45 99.1 F 06/21/16 20:00 99.1 F 18 146/84 94 L 06/21/16 19:05 95 H 20 89 L 06/21/16 16:00 98 F 99 H 20 130/82 97 06/21/16 15:00 94 H 15 06/21/16 14:54 107 H 18 92 L 06/21/16 12:00 88 19 06/21/16 11:58 88 19 129/83 95 06/21/16 11:55 98.3 F 88 18 139/125 93 L 06/21/16 10:29 101 H 20 139/90 99 06/21/16 10:24 91 H 18 95 Pain Assessment - Last Documented Pain Intensity 7 Pain Scale Used 0-10 Pain Scale Intake and Output: Intake & Output 06/19/16 06/20/16 06/21/16 06/22/16 11:59 11:59 11:59 11:59 Intake Total 1639 5152 7009 Output Total 2100 4100 3600 Balance -461 1052 3409 Weight 86.863 kg Lab Results: Lab Results-Last 24 Hours 06/21/16 06/22/16 06/22/16 Range/Units 15:47 05:25 05:25 WBC 10.3 (4.0-10.5) K/mm3 RBC 3.53 L (4.1-5.6) M/mm3 Hgb 11.9 L (12.5-18.0) gm/dl Hct 34.2 L (42-50) % MCV 96.9 (78-100) fl MCH 33.7 H (26-32) pg MCHC 34.8 (32-36) g/dl RDW 14.3 H (11.5-14.0) % Plt Count 144 L (150-450) K/mm3 MPV 10.1 H (6-9.5) fl Segmented Neutrophils 90 H (36.-66.) % Band Neutrophils 1 (0.0-2.0) % Lymphocytes (Manual) 3 L (24-44) % Monocytes (Manual) 6 (0.0-12.0) % Differential Comment NORMAL Platelet Estimate NORMAL (NORMAL) Sodium 136 (136-145) mEq/L Potassium 4.0 (3.5-5.1) mEq/L Chloride 101 (98-107) mEq/L Carbon Dioxide 24.5 (21-32) mEq/L Anion Gap 14.5 (5-15) MEQ/L BUN 17 (9-20) mg/dL Creatinine 0.62 (0.55-1.30) mg/dl Estimated GFR > 60 ML/MIN Glucose 140 H (70-110) MG/DL Calcium 8.6 (8.5-10.1) mg/dL Vancomycin Trough 6.9 L (10-20) UG/ML Radiology Exams: Radiology Procedures Category Date Time Status CHEST 2 VIEWS (PA AND LAT) Routine Exams 06/21/16 13:32 Completed HEAD WITHOUT CONTRAST [CT] Urgent Exams 06/20/16 08:52 Completed MODIFIED BARIUM SWALLOW (RAD) [MODIFIED BARIUM SWALLOW Exams 06/21/16 13:32 Completed EXAM] Routine Multi-Disciplinary Progress Notes: Multi-Disciplinary Progress Notes 06/21/16 16:51 Pharmacy Note by Matthias Leroy Vancomycin trough still low at 6.9. Will increase to q6h schedule for now. Blood culture shows gm negative, but Vancomycin was added for possible MRSA pneumonia. Initialized on 06/21/16 16:51 - END OF NOTE 06/21/16 10:59 Pharmacy Note by Matthias Leroy Vancomycin trough low at 5.4. Level seems low for q8h dosing. Will repeat level later today and adjust dose if needed. Initialized on 06/21/16 10:59 - END OF NOTE Assessment/Plan (1) Gram-negative bacteremia Current Visit: Yes Status: Acute Assessment & Plan: ID and sens pending, currently improving on zosyn, zithromax and vanc Code(s): R78.81 - BACTEREMIA (2) Influenza Current Visit: Yes Status: Acute Assessment & Plan: supportive care Code(s): J11.1 - FLU DUE TO UNIDENTIFIED INFLUENZA VIRUS W OTH RESP MANIFEST (3) Healthcare-associated pneumonia Current Visit: Yes Status: Acute Code(s): J18.9 - PNEUMONIA, UNSPECIFIED ORGANISM (4) Bilateral leg edema Current Visit: Yes Status: Acute Code(s): R60.0 - LOCALIZED EDEMA (5) H/O craniotomy Current Visit: Yes Status: Acute Code(s): Z98.890 - OTHER SPECIFIED POSTPROCEDURAL STATES (6) H/O: lung cancer Current Visit: Yes Status: Acute Code(s): Z85.118 - PERSONAL HISTORY OF MALIGNANT NEOPLASM OF BRONCHUS AND LUNG
[2016-06-22] MEDS: Zithromax 500 MG/ 250 ML NaCl Premix 250 ML IV SCH (08:51)
[2016-06-22] MEDS: SOMA 350 MG PO SCH (08:53)
[2016-06-22] MEDS: Flomax 0.4 MG PO SCH (08:53)
[2016-06-22] MEDS: Protonix 40MG Tablet PO SCH ×2 (08:54→22:27)
[2016-06-22] MEDS: Tamiflu 75MG Capsule PO SCH ×2 (08:54→22:27)
[2016-06-22] MEDS: LYRICA 100MG PO SCH ×2 (08:54→22:27)
[2016-06-22] MEDS ORDERED: Decadron 4 MG PO SCH (10:00)
[2016-06-22] MEDS: xanAX 0.5 MG PO PRN ×2 (10:12→19:07)
[2016-06-23] MEDS: Zosyn 3.375GM/100 Ml D5W 100 ML IV SCH ×4 (01:05→17:11)
[2016-06-23] MEDS: MORPHINE SULFATE 4 MG INJ IV PRN ×9 (01:18→21:40)
[2016-06-23] MEDS: VANCOCIN 1 GM VIAL*** 1 GM in Sodium Chloride 0.9% 250 ML 250 ML IV SCH ×4 (04:58→23:13)
[2016-06-23 06:13] LABS: Mean Cell Volume 97.7 fl (78-100); Mean Platelet Volume 10.5 fl (6-9.5); Platelet Count 145 K/mm3 (150-450); Red Blood Count 3.55 M/mm3 (4.1-5.6); Red Cell Distribution Width 14.7 % (11.5-14.0); White Blood Count 8.2 K/mm3 (4.0-10.5)
[2016-06-23 06:21] LABS: Mean Corpuscular Hemoglobin 32.6 pg (26-32)
[2016-06-23 06:39] LABS: ALBUMIN 1.8 g/dL (3.4-5.0); ALKALINE PHOSPHATASE 84 U/L (46-116); BILIRUBIN,TOTAL 0.5 mg/dL (0.2-1.0); BLOOD UREA NITROGEN 16 mg/dL (9-20); CHLORIDE 103 mEq/L (98-107); Carbon Dioxide 24.9 mEq/L (21-32); Glucose 110 MG/DL (70-110); Potassium 4.1 mEq/L (3.5-5.1); SGOT/AST 66 U/L (15-37); SGPT/ALT 216 U/L (12-78); SODIUM 137 mEq/L (136-145); Total Protein 5.9 gm/dL (6.4-8.2)
[2016-06-23] MEDS: PATIENT OWN MEDICATION IH SCH (07:30)
[2016-06-23] MEDS: DUONEB 0.5-3 MG/3 ml Neb IH SCH ×4 (07:30→18:55)
[2016-06-23] MEDS: Spiriva 18 Mcg/Cap Inhaler IH SCH (07:30)
[2016-06-23] MEDS: LYRICA 100MG PO SCH ×2 (08:20→21:05)
[2016-06-23] MEDS: Oxy-IR 5 MG PO SCH ×4 (08:22→21:05)
[2016-06-23] MEDS: Flomax 0.4 MG PO SCH (08:23)
[2016-06-23] MEDS: Zithromax 500 MG/ 250 ML NaCl Premix 250 ML IV SCH (08:23)
[2016-06-23] MEDS: Tamiflu 75MG Capsule PO SCH ×2 (08:23→21:05)
[2016-06-23] MEDS: Protonix 40MG Tablet PO SCH ×2 (08:23→21:05)
[2016-06-23] MEDS: SOMA 350 MG PO SCH (08:23)
[2016-06-23 08:28] LABS: ATYPICAL LYMPHS 1 %; BAND 2 % (0.0-2.0); Platelet Estimate DECREASED (NORMAL); Total Cells Counted 100
[2016-06-23] MEDS: Decadron 4 MG PO SCH ×2 (12:32→21:05)
[2016-06-23] MEDS: Sodium Chloride 0.9% 1000 ML 1,000 ML IV SCH (17:20)
[2016-06-23] MEDS: xanAX 0.5 MG PO PRN (21:31)
[2016-06-24] MEDS: Zosyn 3.375GM/100 Ml D5W 100 ML IV SCH ×4 (00:40→18:34)
[2016-06-24] MEDS: MORPHINE SULFATE 4 MG INJ IV PRN ×9 (00:40→23:44)
[2016-06-24] MEDS: VANCOCIN 1 GM VIAL*** 1 GM in Sodium Chloride 0.9% 250 ML 250 ML IV SCH ×4 (04:33→23:35)
[2016-06-24] MEDS: DUONEB 0.5-3 MG/3 ml Neb IH SCH ×4 (06:49→21:02)
[2016-06-24] MEDS: Spiriva 18 Mcg/Cap Inhaler IH SCH (07:14)
[2016-06-24] MEDS: PATIENT OWN MEDICATION IH SCH (07:15)
[2016-06-24] MEDS: SOMA 350 MG PO SCH (07:50)
[2016-06-24] MEDS: Oxy-IR 5 MG PO SCH ×4 (07:50→21:09)
[2016-06-24] MEDS: Tamiflu 75MG Capsule PO SCH (07:51)
[2016-06-24] MEDS: Protonix 40MG Tablet PO SCH ×2 (07:51→21:09)
[2016-06-24] MEDS: Flomax 0.4 MG PO SCH (07:51)
[2016-06-24] MEDS: Decadron 4 MG PO SCH ×2 (07:51→21:09)
[2016-06-24] MEDS: Zithromax 500 MG/ 250 ML NaCl Premix 250 ML IV SCH (10:17)
[2016-06-24] MEDS: Duragesic 75 MCG Patch TOP SCH (10:17)
[2016-06-24] MEDS: LYRICA 100MG PO SCH ×2 (12:14→21:09)
[2016-06-24] MEDS: xanAX 0.5 MG PO PRN ×2 (12:15→18:34)
[2016-06-24] MEDS: Sodium Chloride 0.9% 1000 ML 1,000 ML IV SCH (13:08)
[2016-06-25] MEDS: Zosyn 3.375GM/100 Ml D5W 100 ML IV SCH ×4 (01:17→18:56)
[2016-06-25] MEDS: MORPHINE SULFATE 4 MG INJ IV PRN ×8 (02:36→21:58)
[2016-06-25] MEDS: VANCOCIN 1 GM VIAL*** 1 GM in Sodium Chloride 0.9% 250 ML 250 ML IV SCH ×2 (04:52→12:47)
[2016-06-25] MEDS: Spiriva 18 Mcg/Cap Inhaler IH SCH (06:45)
[2016-06-25] MEDS: PATIENT OWN MEDICATION IH SCH (06:45)
[2016-06-25] MEDS: DUONEB 0.5-3 MG/3 ml Neb IH SCH ×4 (06:45→19:35)
[2016-06-25] MEDS: Oxy-IR 5 MG PO SCH ×4 (07:44→21:09)
[2016-06-25] MEDS: Flomax 0.4 MG PO SCH (07:44)
[2016-06-25] MEDS: SOMA 350 MG PO SCH (07:45)
[2016-06-25] MEDS: LYRICA 100MG PO SCH ×2 (07:45→21:08)
[2016-06-25] MEDS: Decadron 4 MG PO SCH ×2 (07:45→21:09)
[2016-06-25] MEDS: Protonix 40MG Tablet PO SCH ×2 (07:45→21:09)
[2016-06-25] MEDS: xanAX 0.5 MG PO PRN (08:18)
--- NOTE | 2016-06-25 08:31 | PCM.NOTE ---
Date and Time: 06/25/16828 Subjective Assessment: patient's headache is dramatically improved today. he is tolerating po, overall feeling much better. no fever over the weekend. Objective Exam General Appearance: no apparent distress, other (well healed scar on frontal region of scalp) Neurologic Exam: alert, oriented x 3, cooperative, normal mood/affect, nml cerebellar function, sensation nml, No motor deficits Skin Exam: normal color, warm, dry Respiratory Exam: crackles/rales, No respiratory distress Cardiovascular Exam: regular rate/rhythm, normal heart sounds Gastrointestinal/Abdomen Exam: soft, No tenderness, No mass Extremity Exam: normal inspection, normal range of motion OBJECTIVE DATA Vital Signs: Vital Signs - 24 hr Temp Pulse Resp BP Pulse Ox 06/25/16 07:34 98 F 77 20 139/74 98 06/25/16 06:50 93 H 16 96 06/25/16 04:00 98.1 F 82 15 127/72 94 L 06/25/16 00:00 98.0 F 77 16 133/75 97 06/24/16 21:31 113 H 20 93 L 06/24/16 20:00 98.3 F 110 H 15 116/73 94 L 06/24/16 16:00 97.5 F 133 H 19 125/92 06/24/16 15:00 88 18 96 06/24/16 11:00 91 H 18 93 L Pain Assessment - Last Documented Pain Intensity 6 Pain Scale Used 0-10 Pain Scale Intake and Output: Intake & Output 06/22/16 06/23/16 06/24/16 06/25/16 11:59 11:59 11:59 11:59 Intake Total 7210 3453 6481 3260 Output Total 3600 1700 3375 2375 Balance 3649 1753 3106 885 Weight 86.863 kg Radiology Exams: Radiology Procedures Category Date Time Status CHEST 2 VIEWS (PA AND LAT) Urgent Exams 06/25/16 08:28 Ordered Assessment/Plan (1) Gram-negative bacteremia Current Visit: Yes Status: Acute Assessment & Plan: klebsiella on blood culture, sensitive to multiple antibiotics, will d/c vanc and zithromax. repeat blood cultures today to ensure cleared infection at this time. Code(s): R78.81 - BACTEREMIA (2) Influenza Current Visit: Yes Status: Acute Code(s): J11.1 - FLU DUE TO UNIDENTIFIED INFLUENZA VIRUS W OTH RESP MANIFEST (3) Healthcare-associated pneumonia Current Visit: Yes Status: Acute Assessment & Plan: repeat chest xray today Code(s): J18.9 - PNEUMONIA, UNSPECIFIED ORGANISM (4) Bilateral leg edema Current Visit: Yes Status: Acute Code(s): R60.0 - LOCALIZED EDEMA (5) H/O craniotomy Current Visit: Yes Status: Acute Code(s): Z98.890 - OTHER SPECIFIED POSTPROCEDURAL STATES (6) H/O: lung cancer Current Visit: Yes Status: Acute Code(s): Z85.118 - PERSONAL HISTORY OF MALIGNANT NEOPLASM OF BRONCHUS AND LUNG
--- NOTE | 2016-06-25 09:05 | XRAY ---
Indication: Pneumonia. Comparison: June 21, 2016. PA/lateral chest again hyperinflated. Previous infiltrate/atelectasis in the right upper lobe has improved with stable appearance in the left upper lobe. Stable right base atelectasis/scarring and right-sided Port-A-Cath. Heart is not enlarged. No new cardiopulmonary abnormalities.
[2016-06-25] MEDS: Zithromax 500 MG/ 250 ML NaCl Premix 250 ML IV SCH (10:27)
[2016-06-25] MEDS ORDERED: TROUGH DRUG LEVELS IJ ONE (10:30)
[2016-06-25] MEDS: Sodium Chloride 0.9% 1000 ML 1,000 ML IV SCH (17:12)
[2016-06-26] MEDS: Zosyn 3.375GM/100 Ml D5W 100 ML IV SCH ×4 (00:05→17:05)
[2016-06-26] MEDS: MORPHINE SULFATE 4 MG INJ IV PRN ×10 (00:10→21:36)
[2016-06-26] MEDS: Sodium Chloride 0.9% 1000 ML 1,000 ML IV SCH ×2 (05:25→18:30)
[2016-06-26 06:11] LABS: Mean Cell Volume 98.9 fl (78-100); Mean Platelet Volume 10.2 fl (6-9.5); Platelet Count 167 K/mm3 (150-450); Red Blood Count 3.67 M/mm3 (4.1-5.6); Red Cell Distribution Width 14.7 % (11.5-14.0); White Blood Count 12.8 K/mm3 (4.0-10.5)
[2016-06-26 06:14] LABS: Mean Corpuscular Hemoglobin 32.6 pg (26-32)
[2016-06-26 06:19] LABS: ALBUMIN 2.1 g/dL (3.4-5.0); ALKALINE PHOSPHATASE 85 U/L (46-116); ANION GAP 12.5 MEQ/L (5-15); BILIRUBIN,TOTAL 0.4 mg/dL (0.2-1.0); BLOOD UREA NITROGEN 16 mg/dL (9-20); CHLORIDE 103 mEq/L (98-107); Glucose 122 MG/DL (70-110); Potassium 4.5 mEq/L (3.5-5.1); SGOT/AST 17 U/L (15-37); SGPT/ALT 110 U/L (12-78); SODIUM 136 mEq/L (136-145)
[2016-06-26] MEDS: DUONEB 0.5-3 MG/3 ml Neb IH SCH ×4 (06:43→19:44)
[2016-06-26] MEDS: Spiriva 18 Mcg/Cap Inhaler IH SCH (06:44)
[2016-06-26] MEDS: PATIENT OWN MEDICATION IH SCH (06:45)
[2016-06-26] MEDS: Oxy-IR 5 MG PO SCH ×4 (07:47→20:58)
--- NOTE | 2016-06-26 09:21 | PCM.NOTE ---
Date and Time: 06/26/16915 Subjective Assessment: patient continues to improve, headache is improved but still present. still has some productive cough Objective Exam General Appearance: no apparent distress, alert Respiratory Exam: crackles/rales (SOMMER worse than right) Cardiovascular Exam: regular rate/rhythm, normal heart sounds Gastrointestinal/Abdomen Exam: soft, No tenderness, No mass Extremity Exam: normal inspection, normal range of motion OBJECTIVE DATA Vital Signs: Vital Signs - 24 hr Temp Pulse Resp BP Pulse Ox 06/26/16 07:47 19 06/26/16 07:19 98.2 F 65 19 143/79 96 06/26/16 06:45 78 16 95 06/26/16 04:00 98.1 F 82 19 131/81 95 06/26/16 00:00 98.2 F 95 H 19 120/78 95 06/25/16 20:00 97.9 F 98 H 18 133/75 96 06/25/16 19:37 100 H 18 94 L 06/25/16 16:02 98.1 F 106 H 20 133/81 91 L 06/25/16 15:49 18 06/25/16 14:46 106 H 18 93 L 06/25/16 12:06 97.6 F 78 20 134/75 92 L 06/25/16 12:00 20 06/25/16 10:47 104 H 18 92 L Pain Assessment - Last Documented Pain Intensity 7 Pain Scale Used 0-10 Pain Scale Intake and Output: Intake & Output 06/23/16 06/24/16 06/25/16 06/26/16 11:59 11:59 11:59 11:59 Intake Total 3453 6481 3380 4136 Output Total 1700 3375 2700 2725 Balance 1753 3106 680 1411 Weight 86.863 kg Lab Results: Lab Results-Last 24 Hours 06/25/16 06/26/16 06/26/16 Range/Units 10:40 05:45 05:45 WBC 12.8 H (4.0-10.5) K/mm3 RBC 3.67 L (4.1-5.6) M/mm3 Hgb 12.0 L (12.5-18.0) gm/dl Hct 36.3 L (42-50) % MCV 98.9 (78-100) fl MCH 32.6 H (26-32) pg MCHC 33.1 (32-36) g/dl RDW 14.7 H (11.5-14.0) % Plt Count 167 (150-450) K/mm3 MPV 10.2 H (6-9.5) fl Sodium 136 (136-145) mEq/L Potassium 4.5 (3.5-5.1) mEq/L Chloride 103 (98-107) mEq/L Carbon Dioxide 25.0 (21-32) mEq/L Anion Gap 12.5 (5-15) MEQ/L BUN 16 (9-20) mg/dL Creatinine 0.68 (0.55-1.30) mg/dl Estimated GFR > 60 ML/MIN Glucose 122 H (70-110) MG/DL Calcium 8.5 (8.5-10.1) mg/dL Total Bilirubin 0.4 (0.2-1.0) mg/dL AST 17 (15-37) U/L ALT 110 H (12-78) U/L Alkaline Phosphatase 85 (46-116) U/L Serum Total Protein 6.0 L (6.4-8.2) gm/dL Albumin 2.1 L (3.4-5.0) g/dL Vancomycin Trough 17.5 (10-20) UG/ML Radiology Exams: Radiology Procedures Category Date Time Status CHEST 2 VIEWS (PA AND LAT) Urgent Exams 06/25/16 08:28 Completed Assessment/Plan (1) Gram-negative bacteremia Current Visit: Yes Status: Acute Assessment & Plan: klebsiella sent to [facility], will continue it alone at this time Code(s): R78.81 - BACTEREMIA (2) Healthcare-associated pneumonia Current Visit: Yes Status: Acute Assessment & Plan: klebsiella on blood culture, chest xray yesterday shows improvement Code(s): J18.9 - PNEUMONIA, UNSPECIFIED ORGANISM (3) Influenza Current Visit: Yes Status: Acute Assessment & Plan: no further fever Code(s): J11.1 - FLU DUE TO UNIDENTIFIED INFLUENZA VIRUS W OTH RESP MANIFEST (4) Bilateral leg edema Current Visit: Yes Status: Acute Assessment & Plan: improved Code(s): R60.0 - LOCALIZED EDEMA (5) H/O craniotomy Current Visit: Yes Status: Acute Code(s): Z98.890 - OTHER SPECIFIED POSTPROCEDURAL STATES (6) H/O: lung cancer Current Visit: Yes Status: Acute Code(s): Z85.118 - PERSONAL HISTORY OF MALIGNANT NEOPLASM OF BRONCHUS AND LUNG
[2016-06-26 10:10] LABS: ANISOCYTOSIS 1+; Platelet Estimate NORMAL (NORMAL); Poikilocytosis 1+; Total Cells Counted 100
[2016-06-26] MEDS: LYRICA 100MG PO SCH ×2 (10:57→21:36)
[2016-06-26] MEDS: Decadron 4 MG PO SCH ×2 (10:57→21:37)
[2016-06-26] MEDS: Protonix 40MG Tablet PO SCH ×2 (10:57→21:36)
[2016-06-26] MEDS: SOMA 350 MG PO SCH (10:57)
[2016-06-26] MEDS: Flomax 0.4 MG PO SCH (10:57)
[2016-06-27] MEDS: Zosyn 3.375GM/100 Ml D5W 100 ML IV SCH ×3 (00:54→11:29)
[2016-06-27] MEDS: MORPHINE SULFATE 4 MG INJ IV PRN ×4 (00:56→12:44)
[2016-06-27 05:57] LABS: ANION GAP 13.6 MEQ/L (5-15); BLOOD UREA NITROGEN 17 mg/dL (9-20); CHLORIDE 103 mEq/L (98-107); Carbon Dioxide 25.1 mEq/L (21-32); Glucose 121 MG/DL (70-110); Mean Cell Volume 98.9 fl (78-100); Mean Platelet Volume 10.1 fl (6-9.5); Platelet Count 176 K/mm3 (150-450); Potassium 4.4 mEq/L (3.5-5.1); Red Blood Count 3.67 M/mm3 (4.1-5.6); Red Cell Distribution Width 14.6 % (11.5-14.0); SODIUM 137 mEq/L (136-145); White Blood Count 10.5 K/mm3 (4.0-10.5)
[2016-06-27 05:59] LABS: Mean Corpuscular Hemoglobin 32.9 pg (26-32)
[2016-06-27] MEDS: PATIENT OWN MEDICATION IH SCH (07:00)
[2016-06-27] MEDS: Spiriva 18 Mcg/Cap Inhaler IH SCH (07:00)
[2016-06-27] MEDS: DUONEB 0.5-3 MG/3 ml Neb IH SCH ×3 (07:00→14:53)
[2016-06-27] MEDS: Oxy-IR 5 MG PO SCH ×2 (07:20→11:29)
[2016-06-27 07:44] LABS: ANISOCYTOSIS 1+; Platelet Estimate NORMAL (NORMAL); Total Cells Counted 100; Toxic Granulation 1+
--- NOTE | 2016-06-27 08:42 | PCM.DS ---
Discharge Summary Date of Admission: 06/19/16 17:49 Admitting Physician: DAVID MCCLOUD Consults: Consults on Case 06/19/16 19:43 Consult Pulmonology ROUTINE Primary Care Provider: MAGDY ROJAS KAITY Allergies Allergies dermabond Allergy (Uncoded 06/19/16 14:39) Rash [facility] Summary - Hospital Course Hospital Course: patient was admitted with pneumonia and influenza, had recent brain surgery for metastatic lung cancer. he ended up growing klebsiella in 1/2 blood cultures that was nearly frias-sensitive. he was initially treated with vanc, zosyn and zithromax. his antibiotics were cut down to zosyn. - Vitals & Intake/Output Vital Signs: Vital Signs Temperature 98.1 F 06/27/16 07:43 Pulse Rate 67 06/27/16 07:43 Respiratory Rate 19 06/27/16 07:43 Blood Pressure 151/88 06/27/16 07:43 O2 Sat by Pulse Oximetry 94 L 06/27/16 07:43 Oxygen-Last Documented O2 Percentage 2 Liters = 28% Intake & Output: Intake & Output 06/24/16 06/25/16 06/26/16 06/27/16 11:59 11:59 11:59 11:59 Intake Total 6481 3380 4136 3644 Output Total 3377 2700 3025 4275 Balance 3106 333 7595 -821 - Lab Result Diagrams: 06/27/16 05:30 06/27/16 05:30 Lab Results-Last 24 Hrs: Lab Results-Last 24 Hours 06/26/16 06/27/16 06/27/16 Range/Units 05:45 05:30 05:30 WBC 12.8 H 10.5 (4.0-10.5) K/mm3 RBC 3.67 L 3.67 L (4.1-5.6) M/mm3 Hgb 12.0 L 12.1 L (12.5-18.0) gm/dl Hct 36.3 L 36.3 L (42-50) % MCV 98.9 98.9 (78-100) fl MCH 32.6 H 32.9 H (26-32) pg MCHC 33.1 33.3 (32-36) g/dl RDW 14.7 H 14.6 H (11.5-14.0) % Plt Count 167 176 (150-450) K/mm3 MPV 10.2 H 10.1 H (6-9.5) fl Gran % 92.0 H (36.0-66.0) % Lymphocytes % 4.0 L (24.0-44.0) % Monocytes % 4.0 (0.0-12.0) % Eosinophils % 0.0 (0.00-5.0) % Basophils % 0.0 (0.0-0.4) % Segmented Neutrophils 92 H 89 H (36.-66.) % Lymphocytes (Manual) 5 L 7 L (24-44) % Monocytes (Manual) 3 4 (0.0-12.0) % Basophils # 0 (0-0.4) Differential Comment ABNORMAL Toxic Granulation 1+ Platelet Estimate NORMAL NORMAL (NORMAL) Poikilocytosis 1+ Anisocytosis 1+ 1+ Sodium 137 (136-145) mEq/L Potassium 4.4 (3.5-5.1) mEq/L Chloride 103 (98-107) mEq/L Carbon Dioxide 25.1 (21-32) mEq/L Anion Gap 13.6 (5-15) MEQ/L BUN 17 (9-20) mg/dL Creatinine 0.69 (0.55-1.30) mg/dl Estimated GFR > 60 ML/MIN Glucose 121 H (70-110) MG/DL Calcium 8.6 (8.5-10.1) mg/dL - Radiology Exams Ordered Rad Exams-Entire Visit: Radiology Procedures Category Date Time Status CHEST 2 VIEWS (PA AND LAT) Urgent Exams 06/25/16 08:28 Completed - Procedures and Test Procedures and Tests throughout Hospitalization: Therapy Orders & Screens 06/19/16 17:51 Oxygen NASAL CANNULA 2 lpm Comment: Diagnosis: Shortness of Breath 06/19/16 18:25 RT Screen per Nursing Assess ONCE Comment: Protocol Order Physician Instructions: Greater than 3 points order RT Admission Screen Reason For Exam: Triggered on Admission Diagnosis: Shortness of Breath Diagnosis: Shortness of Breath Pneumonia: Yes Home O2: No Asthma: No CHF: No Home CPAP/BIPAP: No Home Nebs/MDI: Yes Total Points: 8 06/19/16 19:00 Respiratory Nebulizer Comment: EFRAINONEB Q4 Diagnosis: Shortness of Breath 06/19/16 19:53 Sputum Specimen Obtain .as ordered Comment: Diagnosis: Shortness of Breath 06/20/16 07:00 Respiratory MDI Comment: Anora 1 puff daily-Pt's own med Diagnosis: Shortness of Breath Respiratory MDI Comment: Spiriva 1 puff daily Diagnosis: Shortness of Breath 06/22/16 08:38 Respiratory Nebulizer Comment: DUONEB QID AND Q4PRN Diagnosis: bilateral UL pneumonia 06/22/16 11:00 Respiratory Nebulizer 07,11,15,19 Comment: DUONEB Q4PRN Diagnosis: bilateral UL pneumonia Discharge Exam General Appearance: no apparent distress, alert Respiratory Exam: prolonged expirations, crackles/rales (on the left) Cardiovascular Exam: regular rate/rhythm, normal heart sounds Gastrointestinal/Abdomen Exam: soft, No tenderness, No mass Extremity Exam: normal inspection, normal range of motion Final Diagnosis/Problem List - Final Discharge Diagnosis/Problem (1) Gram-negative bacteremia Current Visit: Yes Status: Acute Assessment & Plan: based on culture results will send home with po levaquin 500mg daily x 7 days (2) Healthcare-associated pneumonia Current Visit: Yes Status: Acute (3) Influenza Current Visit: Yes Status: Acute (4) Bilateral leg edema Current Visit: Yes Status: Acute (5) H/O craniotomy Current Visit: Yes Status: Acute (6) H/O: lung cancer Current Visit: Yes Status: Acute - Discharge Disposition: Home, Self-Care Condition: Stable Prescriptions: New Albuterol/Ipratropium 3ml Neb* [DUONEB 0.5-3 MG/3 ml Neb] 3 ml IH Q4HPRN PRN #0 ampul.neb PRN Reason: Shortness Of Breath Tamsulosin HCl 0.4 mg [Flomax 0.4 MG] 0.4 mg PO DAILY #0 cap Levofloxacin [Levaquin] 500 mg PO DAILY #7 tablet Tiotropium Reading Inhaler [Spiriva 18 Mcg/Cap Inhaler] 1 ea IH DAILY # 0 inh Alprazolam [Xanax 0.5 mg] 0.5 mg PO Q6H PRN PRN #60 tablet PRN Reason: Anxiety Continue Multivitamin [Multi-Vitamin Daily] 1 ea PO DAILY Pregabalin [Lyrica] 200 mg PO BID Fentanyl 75Mcg Patch [Duragesic 75 MCG Patch] 75 mcg TOP UD Tadalafil [Cialis] 5 mg PO DAILY PRN PRN PRN Reason: erection Ibandronate Sodium [Boniva] 150 mg PO UD Ergocalciferol (Vitamin D2) [Vitamin D2] 50,000 unit PO Q7D Oxycodone HCl 15 mg PO BID Oxycodone HCl 10 mg PO BID Omeprazole [Prilosec] 40 mg PO BID Carisoprodol 350 mg [Soma 350 mg] 350 mg PO DAILY Ipratropium/Albuterol Sulfate [Iprat-Albut 0.5-3(2.5) mg/3 ml] 2 puff IH QID Umeclidinium Brm/Vilanterol Tr [Anoro Ellipta 62.5-25 Mcg INH] 1 puff IH DAILY Calcium Carbonate/Vitamin D3 [Calcium 1,000 + D3 Caplet] 1 tab PO DAILY Follow up with: MAGDY ROJAS MD [Primary Care Provider] - ANA CRISTINA WEN [CONSULTING PHYSICIAN] - 1 Week Forms: Patient Portal Information
[2016-06-27] MEDS: LYRICA 100MG PO SCH (09:07)
[2016-06-27] MEDS: Duragesic 75 MCG Patch TOP SCH (09:07)
[2016-06-27] MEDS: xanAX 0.5 MG PO PRN (09:08)
[2016-06-27] MEDS: Flomax 0.4 MG PO SCH (09:08)
[2016-06-27] MEDS: SOMA 350 MG PO SCH (09:08)
[2016-06-27] MEDS: Decadron 4 MG PO SCH (09:09)
[2016-06-27] MEDS: Protonix 40MG Tablet PO SCH (09:09)
[2016-06-27 12:11] VITALS: BP 152/81; PULSE 110; O2SAT 94
== END 2016-06-27 14:50 | disposition home or self-care (01) | DRG 867 ==
LOC: ED 14:03 → ICU 17:49 → MED SURG 06-21 18:59
PROVIDERS: ADMIT Family Medicine; ATTEND Family Medicine
DX: B96.1 Klebsiella pneumoniae [K. pneumoniae] as the cause of diseases classified elsewhere (principal); J18.9 Pneumonia, unspecified organism; C79.31 Secondary malignant neoplasm of brain; M54.5 Low back pain; G89.29 Other chronic pain; Z85.118 Personal history of other malignant neoplasm of bronchus and lung; Y95 Nosocomial condition; J10.1 Influenza due to other identified influenza virus with other respiratory manifestations; R60.0 Localized edema; M25.562 Pain in left knee; M25.561 Pain in right knee; Z98.890 Other specified postprocedural states; I10 Essential (primary) hypertension; R09.02 Hypoxemia; F41.9 Anxiety disorder, unspecified; G62.9 Polyneuropathy, unspecified; K21.9 Gastro-esophageal reflux disease without esophagitis; J44.9 Chronic obstructive pulmonary disease, unspecified; M81.0 Age-related osteoporosis without current pathological fracture; Z87.891 Personal history of nicotine dependence
CPT/HCPCS: 36000; 36415; 70450; 71010; 71020; 74230; 80048; 80053; 80202; 81002; 83605; 83880; 85025; 85027; 87040; 87077; 87186; 87631; 89220; 93005; 93970; 94640; 94760; 96360; 96365; 99284; 99285; J0456; J1642; J2060; J2270; J2543; J3370

== ENCOUNTER 2016-08-03 21:25 | Emergency (ER) | payer OTHER ==
[2016-08-03] MEDS ORDERED: Sodium Chloride 0.9% 1000 ML 1,000 ML IV STA (21:31)
[2016-08-03] MEDS ORDERED: SUBLIMAZE 100 MCG/2 ML IV ONE (21:33)
[2016-08-03] MEDS ORDERED: SUBLIMAZE 100 MCG/2 ML ONE (21:44)
[2016-08-03] MEDS ORDERED: Sodium Chloride 0.9% 1000 ML 1,000 ML ONE (21:44)
[2016-08-03 21:53] LABS: Mean Cell Volume 109.8 fl (78-100); Mean Platelet Volume 10.2 fl (6-9.5); Platelet Count 72 K/mm3 (150-450); Red Blood Count 2.95 M/mm3 (4.1-5.6); Red Cell Distribution Width 19.5 % (11.5-14.0); White Blood Count 4.8 K/mm3 (4.0-10.5)
--- NOTE | 2016-08-03 21:54 | ERPHSYRPT ---
- History of Present Illness Time Seen by Provider: 08/03/16 21:47 Source: patient, EMS Exam Limitations: no limitations Patient Subjective Stated Complaint: FEVER AND MALAISE TODAY. BILAT LOWER EXT WITH PITTING EDEMA BEGAN A FEW DAYS AGO. Triage Nursing Assessment: PT ALERT AND ORIENTED, ANSWERS QUESTIONS APPROP. PT ARRIVED PER AMBULANCE. MOVES SELF IN BED. RESPIRATIONS NONLABORED WITH LUNGS CTA. SKIN PINK WARM AND DRY. LOWER EXT WITH +2-3 PITTING EDEMA AND MULT SCABBED AREAS. Physician History: 51-year-old male with significant history of metastatic lung cancer recently admitted in the hospital with brain infection. Patient started having a severe headache, fever, weakness, malaise for last 1-2 days, so he was brought into the emergency room by ambulance. Timing/Duration: day(s) Fever Severity: moderate Fever Therapy CONSULTING PROPERTY MANAGER: none Associated Symptoms: confusion, headache, muscle aches, weakness International travel in last 2 weeks: No Allergies/Adverse Reactions: dermabond Allergy (Uncoded 08/03/16 22:04) Rash Home Medications: Fentanyl 75Mcg Patch [Duragesic 75 MCG Patch] 75 mcg TOP UD 05/18/14 [ History] Ibandronate Sodium [Boniva] 150 mg PO UD 03/08/16 [History] Omeprazole [Prilosec] 40 mg PO BID 03/08/16 [History] Oxycodone HCl 10 mg PO BID 03/08/16 [History] Apixaban [Eliquis] 5 mg PO BID 08/03/16 [History] Butalb/Acetaminophen/Caffeine [Fioricet 50-300-40 mg Capsule] 2 each PO Q4HPRN PRN 08/03/16 [History] Fluticasone/Vilanterol [Breo Ellipta 200-25 Mcg INH] 1 each IH DAILY 08/03/16 [ History] Morphine Sulfate [Morphine Sulfate ER] 30 mg PO BID 08/03/16 [History] Ondansetron HCl 8 mg PO Q6HPRN PRN 08/03/16 [History] Oxycodone HCl 30 mg PO Q4-6HPRN PRN 08/03/16 [History] Pantoprazole Sodium 40 mg PO BID 08/03/16 [History] Pregabalin [Lyrica] 300 mg PO BID 08/03/16 [History] Propranolol HCl [Inderal Xl] 80 mg PO DAILY 08/03/16 [History] Sodium Chloride 1 gm PO DAILY 08/03/16 [History] Hx Tetanus, Diphtheria Vaccination/Date Given: Yes Hx Influenza Vaccination/Date Given: Yes Hx Pneumococcal Vaccination/Date Given: No Immunizations Up to Date: Yes - Review of Systems Constitutional: Fever, Fatigue, Lethargy, Malaise Eyes: No Symptoms Ears, Nose, & Throat: No Symptoms Respiratory: No Symptoms Cardiac: No Symptoms Abdominal/Gastrointestinal: No Symptoms Genitourinary Symptoms: No Symptoms Musculoskeletal: No Symptoms Skin: No Symptoms Neurological: Gait Changes, Headache, Irritability, Lethargy Psychological: No Symptoms - Past Medical History Pertinent Past Medical History: Yes Neurological History: Peripheral Neuropathy ENT History: No Pertinent History Cardiac History: Other Respiratory History: COPD, Lung Cancer Endocrine Medical History: No Pertinent History Musculoskeletal History: Osteoporosis GI Medical History: No Pertinent History History: No Pertinent History Psycho-Social History: No Pertinent History Male Reproductive Disorders: No Pertinent History Other Medical History: Hx lung CA - Past Surgical History Past Surgical History: Yes Neuro Surgical History: Neurological Surgery Cardiac: No Pertinent History Respiratory: No Pertinent History, Other Gastrointestinal: No Pertinent History Genitourinary: No Pertinent History Musculoskeletal: Orthopedic Surgery Male Surgical History: Vasectomy Other Surgical History: R HIP X5 BILAT KNEE, TOE SURG, SINUS SURG, 7 BACK SURG, bronchoscopy. Craniotomy for brain tumor resection X2, LAST JULY 11 AT [facility] - Social History Smoking Status: Former smoker How long have you smoked: 2 wks ago Exposure to second hand smoke: No Drug Use: none Patient Lives Alone: No - Nursing Vital Signs Nursing Vital Signs: Initial Vital Signs Temperature 100.2 F Temperature Source Oral Pulse Rate 86 Respiratory Rate 20 Blood Pressure [Left Arm] 110/69 Pain Intensity 8 - Physical Exam General Appearance: mild distress Eye Exam: PERRL/EOMI ENT Exam: normal ENT inspection Neck Exam: normal inspection Respiratory Exam: decreased breath sounds Cardiovascular/Chest Exam: normal heart sounds Gastrointestinal/Abdominal Exam: soft Extremity Exam: non-tender Neurologic Exam: alert, confusion SpO2: 96 Oxygen Delivery: Room Air - Course Nursing assessment & vital signs reviewed: Yes - CT Exams Head CT Interpretation: Tele-radiologist Report Ordered Tests: Active Orders 24 hr Category Date Time Status Accucheck STAT Care 08/03/16 21:31 Active Oxygen-ED Only NASAL CANNULA 2 lpm Care 08/03/16 21:31 Active CHEST 1 VIEW (PORTABLE) Stat Exams 08/03/16 21:33 Ordered HEAD WITHOUT CONTRAST [CT] Stat Exams 08/03/16 21:32 Ordered BLOOD CULTURE Stat Lab 08/03/16 21:50 Received CBC W DIFF Stat Lab 08/03/16 21:49 Completed CMP Stat Lab 08/03/16 21:49 Completed Lactic Acid Urgent Lab 08/03/16 21:40 Completed Manual Differential NC Stat Lab 08/03/16 21:49 Completed UA Stat Lab 08/03/16 21:32 Ordered Medication Summary Discontinued Medications Generic Name Dose Route Start Last Admin Trade Name Freq PRN Reason Stop Dose Admin Fentanyl Citrate 50 mcg 08/03/16 21:33 08/03/16 21:51 Sublimaze 100 Mcg/2 Ml IV 08/03/16 21:34 50 mcg STAT ONE Administration Fentanyl Citrate Confirm 08/03/16 21:44 Sublimaze 100 Mcg/2 Ml Administered 08/03/16 21:45 Dose 100 mcg .ROUTE .STK-MED ONE Sodium Chloride 1,000 mls @ 999 mls/hr 08/03/16 21:31 08/03/16 21:52 Sodium Chloride 0.9% 1000 Ml IV 08/03/16 22:31 999 mls/hr .Q1H1M STA Administration Sodium Chloride Confirm 08/03/16 21:44 Sodium Chloride 0.9% 1000 Ml Administered 08/03/16 21:45 Dose 1,000 mls @ ud .ROUTE .STK-MED ONE Lab/Rad Data: Laboratory Result Diagrams 08/03/16 21:49 08/03/16 21:49 Laboratory Results 08/03/16 08/03/16 08/03/16 Range/Units 21:49 21:49 21:40 WBC 4.8 (4.0-10.5) K/mm3 RBC 2.95 L (4.1-5.6) M/mm3 Hgb 10.5 L (12.5-18.0) gm/dl Hct 32.4 L (42-50) % MCV 109.8 H (78-100) fl MCH 35.5 H (26-32) pg MCHC 32.4 (32-36) g/dl RDW 19.5 H (11.5-14.0) % Plt Count 72 L (150-450) K/mm3 MPV 10.2 H (6-9.5) fl Segmented Neutrophils 84 H (36.-66.) % Band Neutrophils 6 H (0.0-2.0) % Lymphocytes (Manual) 5 L (24-44) % Monocytes (Manual) 5 (0.0-12.0) % Differential Comment ABNORMAL Platelet Estimate DECREASED (NORMAL) Polychromasia 2+ Hypochromasia 1+ Basophilic Stippling 2+ Sodium 141 (136-145) mEq/L Potassium 3.9 (3.5-5.1) mEq/L Chloride 106 (98-107) mEq/L Carbon Dioxide 26.8 (21-32) mEq/L Anion Gap 12.1 (5-15) MEQ/L BUN 17 (9-20) mg/dL Creatinine 0.68 (0.55-1.30) mg/dl Estimated GFR > 60 ML/MIN Glucose 115 H (70-110) MG/DL Lactic Acid 1.0 (0.4-2.0) Calcium 8.3 L (8.5-10.1) mg/dL Total Bilirubin 0.4 (0.2-1.0) mg/dL AST 26 (15-37) U/L ALT 85 H (12-78) U/L Alkaline Phosphatase 84 (46-116) U/L Serum Total Protein 5.8 L (6.4-8.2) gm/dL Albumin 2.7 L (3.4-5.0) g/dL - Progress Progress: improved Counseled pt/family regarding: lab results, diagnosis, need for follow-up, rad results - Departure Time of Disposition: 22:52 Departure Disposition: Home Clinical Impression: H/O craniotomy, H/O: lung cancer, Gram-negative bacteremia, Bilateral leg edema , Headache due to intracranial disease Condition: Stable Critical Care Time: Yes Critical Care Time(excluding separately billable procedures): 30-74 minutes Referrals: MAGDY ROJAS MD [Primary Care Provider] - Additional Instructions: Please give Benadryl 25 mg IV 10 minutes before each intravenous vancomycin infusion. Start dexamethasone 4 mg every 8 hours. Keep your legs elevated. Follow-up with your primary care physician in next 1-2 days. Please let your oncologist know about ER visit. Prescriptions: Diphenhydramine HCl 50 mg/ml [Benadryl 50 mg/ml] 25 mg IV Q8H #10 vial
[2016-08-03 22:00] LABS: Mean Corpuscular Hemoglobin 35.5 pg (26-32)
[2016-08-03 22:13] LABS: ALBUMIN 2.7 g/dL (3.4-5.0); ALKALINE PHOSPHATASE 84 U/L (46-116); ANION GAP 12.1 MEQ/L (5-15); BILIRUBIN,TOTAL 0.4 mg/dL (0.2-1.0); BLOOD UREA NITROGEN 17 mg/dL (9-20); CHLORIDE 106 mEq/L (98-107); Carbon Dioxide 26.8 mEq/L (21-32); Glucose 115 MG/DL (70-110); Potassium 3.9 mEq/L (3.5-5.1); SGOT/AST 26 U/L (15-37); SGPT/ALT 85 U/L (12-78); SODIUM 141 mEq/L (136-145); Total Protein 5.8 gm/dL (6.4-8.2)
[2016-08-03 22:19] LABS: BAND 6 % (0.0-2.0); Platelet Estimate DECREASED (NORMAL); Total Cells Counted 100
[2016-08-03 22:20] LABS: Basophilic Stippling 2+; Hypochromia 1+; Polychromasia 2+
[2016-08-03 23:04] LABS: Collection Type CLEAN CATCH
[2016-08-03 23:05] LABS: Bacteria RARE /HPF (NEGATIVE); COMPLETE URINE MICROSCOPIC? YES; Ph 8.5 (5-6)
[2016-08-03 23:58] VITALS: PULSE 87
[2016-08-03 23:59] VITALS: BP 104/67; O2SAT 97
--- NOTE | 2016-08-04 08:17 | XRAY ---
Indication: Fever. History of lung cancer with radiation and chemotherapy. Comparison: June 25, 2016. Portable chest slightly less inflated today with stable left perihilar opacities and right Port-A-Cath. Query new 1 cm left base nodule and small left effusion. Remaining heart and right lung stable unremarkable.
--- NOTE | 2016-08-04 08:26 | XRAY ---
Indication: Headache. Recent craniotomy for large right parietal lobe enhancing mass. Multiple contiguous axial images obtained through the head without contrast. Comparison: June 20, 2016. Interval right frontal parietal craniectomy for known right parietal enhancing mass with underlying extra-axial 3.5 x 2.0 x 2.3 cm fluid collection. No acute intracranial hemorrhage, pneumocephalus, or hydrocephalus. Fourth ventricle is midline. Remaining bony calvarium intact. Paranasal sinuses and mastoid air cells are clear. Impression: Status post right frontoparietal craniectomy with postsurgical extra-axial fluid collection as detailed. No acute intracranial hemorrhage or mass effect. Preliminary interpretation was made by [facility]. No discrepancy. CTDI 65.42
== END 2016-08-03 23:35 | disposition home or self-care (01) ==
LOC: ED 21:25
DX: R78.81 Bacteremia (principal); R60.9 Edema, unspecified; R51 Headache; G93.89 Other specified disorders of brain; Z85.118 Personal history of other malignant neoplasm of bronchus and lung; Z98.890 Other specified postprocedural states
CPT/HCPCS: 36415; 70450; 71010; 80053; 81000; 82962; 83605; 85025; 87040; 96360; 96374; 99284; J1642; J3010